=== PATIENT | male | born 1945 | race Caucasian/White ===

== ENCOUNTER 2020-10-06 14:34 | Inpatient (IN) | payer MEDICARE, BC ==
[2020-10-06] MEDS ORDERED: Acetaminophen 325 MG TAB PO PRN (15:28)
[2020-10-06] MEDS ORDERED: Ondansetron PF 4 MG/2 ML Vial IVP PRN (15:28)
[2020-10-06] MEDS ORDERED: Dextrose 5% in Water 1,000 ML IV PRN (15:30)
[2020-10-06] MEDS ORDERED: Dextrose 50% Abboject 50 ML SYRINGE SLOW IVP PRN (15:30)
[2020-10-06] MEDS ORDERED: Sodium Chloride 0.9% 1,000 ML IV SCH (16:00)
--- NOTE | 2020-10-06 16:20 | HP ---
CHIEF COMPLAINT: Shortness of breath. HISTORY OF PRESENT ILLNESS: The patient is a 75-year-old male with past medical history of diabetes mellitus, hypertension, early dementia, and CHF. He initially presented to [facility] with complaints of generalized aching, shortness of breath, and dry cough. His initial oxygen saturations were in the mid 80s on room air. The patient denies chest pain, abdominal pain, nausea, or vomiting. His COVID test came back positive and the patient was transferred here for further evaluation. REVIEW OF SYSTEMS: Negative except as noted in HPI. PAST MEDICAL HISTORY: As noted above. PAST SURGICAL HISTORY: No known surgeries. SOCIAL HISTORY: The patient denies alcohol use, smoking, or illicit drug use. FAMILY HISTORY: Noncontributory in this case. PHYSICAL EXAMINATION: GENERAL: The patient is alert and oriented x3. HEENT: Head is normocephalic and atraumatic. Extraocular muscles are intact. NECK: Supple. CHEST: Clear to auscultation except for the crackles heard at the bases. CARDIOVASCULAR: Revealed normal S1 and S2. Regular rate and rhythm. No murmurs, rubs, or gallops. ABDOMEN: Soft, nontender, nondistended. NEUROLOGIC: Revealed normal cranial nerves 2 through 12 and normal motor and sensory evaluation. ASSESSMENT: 1. Acute respiratory failure with hypoxia. 2. COVID-19 pneumonia. 3. Hypertension. 4. Diabetes mellitus type 2. 5. Early dementia. PLAN: The patient will be admitted to the hospital. We will start supplemental oxygen as needed to maintain O2 saturations greater than 92%. Start IV dexamethasone 6 mg daily and Lovenox 40 mg subcu twice daily for DVT prophylaxis and anticoagulation. The patient's symptoms started less than a week ago and his creatinine level appears to be mildly elevated. I will check his liver enzymes and consider starting remdesivir. Job ID: [id number]
[2020-10-06] MEDS ORDERED: REMDESIVIR (EUA) 200 MG in Sodium Chloride 0.9% 250 ML 210 ML IV SCH (18:00)
[2020-10-06 18:06] VITALS: BMI 24.2
[2020-10-06] MEDS: Enoxaparin Sodium 40 MG/0.4 ML SYRINGE SC SCH (20:41)
[2020-10-07] MEDS: HumaLOG 300 UNITS/3 ML VIAL SC PRN ×3 (04:28→19:01)
[2020-10-07 06:22] LABS: #Lymphocytes 0.8 thou/uL (1.20-3.40); #Monocytes 0.7 thou/uL (0.11-0.59); #Neutrophils 6.5 thou/uL (1.40-6.50); %Eosinophils 0.2 % (0.0-10.0); %Lymphocytes 10.1 % (21.0-51.0); %Monocytes 8.2 % (0.0-10.0); %Neutrophils 81.5 % (42.0-75.0); Hemoglobin 12.5 g/dL (14.0-18.0); Mean Corpuscular Hemoglobin 33.5 pg (27.0-31.0); Mean Platelet Volume 6.4 fL (7.4-10.4); Platelet Count 268 thou/uL (130-400); RBC Distribution Width 11.5 % (11.5-14.5); Red Blood Cell (RBC) Count 3.72 mill/uL (4.70-6.10); White Blood Cell (WBC) Count 7.9 thou/uL (4.8-10.8)
[2020-10-07 06:43] LABS: Anion Gap 14 mmol/L (10-20); BUN (Urea Nitrogen) 24 mg/dL (8.4-25.7); Calc. Creatinine Clearance 49 mL/min (70-130); Calcium 7.8 mg/dL (7.8-10.44); Carbon Dioxide 25 mmol/L (23-31); Chloride 104 mmol/L (98-107); Glucose 200 mg/dL (83-110); Potassium 4.6 mmol/L (3.5-5.1); Sodium 138 mmol/L (136-145)
[2020-10-07] MEDS: Enoxaparin Sodium 40 MG/0.4 ML SYRINGE SC SCH (09:11)
[2020-10-07] MEDS: Dexamethasone 4 mg/ml Vial SLOW IVP SCH ×2 (09:11)
--- NOTE | 2020-10-07 15:27 | CON ---
DATE OF CONSULTATION: 10/07/2020 REASON FOR CONSULTATION: COVID pneumonia. HISTORY OF PRESENT ILLNESS: A 75-year-old who has a history of type 2 diabetes, hypertension, and CHF, who has been sick with weakness, fever for the past 4 to 5 days. He was admitted on the and he lives in [place]. He is retired, lives there with his , had some kind of operation few months ago, but no other person that he knows that has had any diagnosis of NFEY-OCDUF-3 infection. He also has a history of some form of lung disease for which he used inhalers in the past. Has a CT of chest in the past, which showed interstitial fibrosis. In [place] [facility], his oxygen sats were in high 80s. He was given supplemental oxygen and it went up to 91% to 92%. A CT of chest showed findings consistent with pulmonary fibrosis as well as superimposed atypical pneumonia consistent with ICUF-IZPHL-7, but negative for pulmonary embolism. Currently, Mr. Amos is sitting by the bedside, looking at the window. He does not appear in any distress. He himself states that he feels just fine. No headaches. No visual symptoms, sore throat, odynophagia, or dysphagia. No nausea. No anosmia. No ageusia. Some cough, but no sputum production. No chest pain. Mild dyspnea. No abdominal pain or diarrhea, no genitourinary symptoms, no joint symptoms. PAST MEDICAL HISTORY: Hypertension, diabetes, some form of cardiomyopathy with CHF, reported pulmonary fibrosis by CT scan from 2011, but the patient himself does not recall that. There is a listed diagnosis of dementia. PAST SURGICAL HISTORY: The patient has had no surgical interventions in the past. 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 Drinks occasionally. Quit smoking in . FAMILY HISTORY: Noncontributory. His has not been sick over recently and has not been tested for COVID recently, but she was tested a few months ago when she was admitted for surgical procedure and was negative. MEDICATION LIST: Currently, he is receiving Decadron, remdesivir, insulin, enoxaparin. PHYSICAL EXAMINATION: VITAL SIGNS: Showed T-max 98.3, blood pressure 150/68, heart rate 56, respiratory rate 18 to 20. He is saturating anywhere from 90% to 92% with 3 L nasal cannula. SKIN: Shows peripheral IV access. He has no Onofre catheter. No lymphadenopathy. HEENT: Ocular movements conjugate. Some pterygium noted in the eyes. Conjunctivae normal. Still quite a few teeth in place with usual decay. NECK: Supple. No jugular vein distention. LUNGS: With few crackles, but not many scattered areas. For the most part, breath sounds are clear. No wheezing. HEART: S1 and S2. Regular rate without murmurs. No S3 or S4. ABDOMEN: Soft, nondistended or tender. No ascites. No bladder distention. MUSCULOSKELETAL: No joint inflammatory activity. No edema. Pulses 1+ in dorsalis pedis. Moves all extremities equally. Plantar responses are flexor. No clonus. NEUROLOGIC: Awake and oriented. Follows commands. His recall is a bit lacking, but he speaks in full sentences. No difficulty in finding words. LABORATORY DATA: Creatinine is 1.35, glucose 255, white cell count 7.9, hemoglobin 12.5, MCV 102, platelets 268, 81% neutrophils and ZNGC-[id number]-2 RNA PCR was positive. The chest imaging studies have been discussed. ASSESSMENT: Pulmonary fibrosis, type 2 diabetes, hypertension, some form of congestive heart failure, who comes in with 4 to 5-day history of symptoms of fever, respiratory symptoms, and general malaise and OVYF-PODGT-2 positive PCR. The patient is at the end of his 1st week of illness and still long ways to go before he is out of the dangerous second stage of COVID-19 or any inflammatory process supervenes. Continue current measures and monitor daily. Recent randomized trial demonstrate that the intensified anticoagulation dosing for COVID-19 is not helpful and I would advise just usual prophylactic dosing of Lovenox. Job ID: [id number] [facility]
--- NOTE | 2020-10-07 16:10 | PDOC.HOSPP ---
- Subjective Encounter Date: 10/07/20 Encounter Time: 09:00 Subjective: patient seen on f/u for covid 19 pneumonia, refers feeling well, denies fever chills change in smell or taste, currently on 02 supplementation. refers dyspnea improved with supplementation also complains of cough - Objective Vital Signs & Weight: Weight Weight 163 lb 12.8 oz I&O: 10/06/20 10/07/20 10/08/20 06:59 06:59 06:59 Intake Total 240 Balance 240 Result Diagrams: 10/07/20 05:49 10/07/20 05:49 Additional Labs: Accuchecks 10/07/20 10/07/20 11:17 04:06 POC Glucose 255 H 221 H Hospitalist ROS - Review of Systems All other systems reviewed; all pertinent +/- noted in HPI/Subj - Medication Medications: Active Medications Generic Name Dose Route Start Last Admin Trade Name Freq PRN Reason Stop Dose Admin Dexamethasone 6 mg 10/07/20 09:00 10/07/20 09:11 Dexamethasone 4 Mg/Ml Vial SLOW IVP 6 mg DAILY OLIVIA Administration Insulin Human Lispro 0 units 10/06/20 15:30 10/07/20 12:16 Humalog 300 Units/3 Ml Vial SC 6 unit .MODERATE SLIDING SC PRN Administration Moderate Correctional Scale - Exam General Appearance: NAD, awake alert Eye: PERRL, anicteric sclera ENT: normocephalic atraumatic, no oropharyngeal lesions Neck: supple, symmetric, no JVD, no thyromegaly Heart: RRR, no murmur, no gallops, no rubs Respiratory: no wheezes, no rales, tachypneic Gastrointestinal: soft, non-tender, non-distended Extremities: no cyanosis, no clubbing, no edema Skin: normal turgor, no lesions, no rashes Neurological: cranial nerve grossly intact, normal sensation to touch, no weakness Musculoskeletal: normal tone, normal strength, no muscle wasting Psychiatric: normal affect, normal behavior, A&O x 3 Hosp A/P (1) Pneumonia due to COVID-19 virus Code(s): U07.1 - COVID-19; J12.89 - OTHER VIRAL PNEUMONIA Status: Acute (2) Acute respiratory failure with hypoxia Code(s): J96.01 - ACUTE RESPIRATORY FAILURE WITH HYPOXIA Status: Acute (3) HLD (hyperlipidemia) Code(s): E78.5 - HYPERLIPIDEMIA, UNSPECIFIED Status: Acute - Plan pneumonia due to covid 19 - continue 02 supplemenation - continue decadron - dvt prophylaxis - ID consulted for possible remdesevir hypoxic resp failure - secondary to above - wean as tolerated - 02 supplementation janine -continue iv hydration f/u creatinine and u/o DM ss+acc htn -holding for now due to infection and janine
[2020-10-07] MEDS: REMDESIVIR (EUA) 100 MG in Sodium Chloride 0.9% 250 ML 230 ML IV SCH (18:31)
[2020-10-08 06:56] LABS: Anion Gap 13 mmol/L (10-20); BUN (Urea Nitrogen) 23 mg/dL (8.4-25.7); Calc. Creatinine Clearance 52 mL/min (70-130); Calcium 8.2 mg/dL (7.8-10.44); Carbon Dioxide 27 mmol/L (23-31); Chloride 105 mmol/L (98-107); Glucose 191 mg/dL (83-110); Potassium 4.3 mmol/L (3.5-5.1); Sodium 141 mmol/L (136-145)
[2020-10-08] MEDS: Dexamethasone 4 mg/ml Vial SLOW IVP SCH (09:27)
[2020-10-08] MEDS: Enoxaparin Sodium 40 MG/0.4 ML SYRINGE SC SCH (09:27)
--- NOTE | 2020-10-08 13:37 | PDOC.HOSPP ---
- Subjective Encounter Date: 10/08/20 Encounter Time: 11:00 Subjective: patient seen on f/u for covid 19 and hypoxia. patient stated he was feeling better and decided to removed his nasal canula, which was complicated after 30mins with a drop in 02 sats to the 80s hypotension and tachycardia, patient stated he felt sob but denies any chest pain palpitations fever chills nausea or vomiting. - Objective Vital Signs & Weight: Vital Signs (12 hours) Temp Pulse Resp BP Pulse Ox 10/08/20 11:12 98.2 F 60 20 122/69 94 L 10/08/20 08:28 81 126/69 91 L 10/08/20 08:25 87 L 10/08/20 07:44 98.5 F 108 H 18 80/63 L 93 L Weight Weight 163 lb 12.8 oz I&O: 10/07/20 10/08/20 10/09/20 06:59 06:59 06:59 Intake Total 240 1200 Balance 240 1200 Result Diagrams: 10/07/20 05:49 10/08/20 05:47 Additional Labs: Accuchecks 10/08/20 10/08/20 10/07/20 11:17 06:43 16:21 POC Glucose 229 H 197 H 232 H Hospitalist ROS - Review of Systems All other systems reviewed; all pertinent +/- noted in HPI/Subj - Medication Medications: Active Medications Generic Name Dose Route Start Last Admin Trade Name Freq PRN Reason Stop Dose Admin Dexamethasone 6 mg 10/07/20 09:00 10/08/20 09:27 Dexamethasone 4 Mg/Ml Vial SLOW IVP 6 mg DAILY OLIVIA Administration Enoxaparin Sodium 40 mg 10/08/20 09:00 10/08/20 09:27 Enoxaparin Sodium 40 Mg/0.4 Ml Syringe SC 40 mg 0900 OLIVIA Administration Remdesivir 100 mg/ Sodium 250 mls @ 250 mls/hr 10/07/20 18:00 10/07/20 18:31 Chloride IV 10/10/20 18:59 250 mls 1800 OLIVIA Administration Insulin Human Lispro 0 units 10/06/20 15:30 10/07/20 19:01 Humalog 300 Units/3 Ml Vial SC 4 unit .MODERATE SLIDING SC PRN Administration Moderate Correctional Scale - Exam General Appearance: NAD, awake alert Eye: PERRL, anicteric sclera ENT: normocephalic atraumatic, no oropharyngeal lesions Neck: supple, symmetric, no JVD Heart: RRR, no murmur, no gallops Respiratory: CTAB, no wheezes, no rales Gastrointestinal: soft, non-tender, non-distended Extremities: no cyanosis, no clubbing, no edema Skin: normal turgor, no lesions, no rashes Neurological: cranial nerve grossly intact, normal sensation to touch Musculoskeletal: normal tone, normal strength, no muscle wasting Psychiatric: normal affect, normal behavior, A&O x 3 Hosp A/P (1) Pneumonia due to COVID-19 virus Code(s): U07.1 - COVID-19; J12.89 - OTHER VIRAL PNEUMONIA Status: Acute (2) Acute respiratory failure with hypoxia Code(s): J96.01 - ACUTE RESPIRATORY FAILURE WITH HYPOXIA Status: Acute (3) HLD (hyperlipidemia) Code(s): E78.5 - HYPERLIPIDEMIA, UNSPECIFIED Status: Acute (4) ZAN (acute kidney injury) Code(s): N17.9 - ACUTE KIDNEY FAILURE, UNSPECIFIED Status: Acute - Plan pneumonia due to covid 19 - continue 02 supplemenation - continue decadron - dvt prophylaxis - ID consulted for remdesevir hypoxic resp failure - secondary to above - wean as tolerated - 02 supplementation zan -continue iv hydration f/u creatinine and u/o - improved continue to monitor DM ss+acc htn -holding for now due to infection and zan
[2020-10-08] MEDS: HumaLOG 300 UNITS/3 ML VIAL SC PRN (18:00)
[2020-10-08] MEDS: REMDESIVIR (EUA) 100 MG in Sodium Chloride 0.9% 250 ML 230 ML IV SCH (18:01)
[2020-10-09] MEDS: HumaLOG 300 UNITS/3 ML VIAL SC PRN ×3 (05:36→16:38)
[2020-10-09] MEDS: Enoxaparin Sodium 40 MG/0.4 ML SYRINGE SC SCH (09:27)
[2020-10-09] MEDS: Dexamethasone 4 mg/ml Vial SLOW IVP SCH (09:27)
--- NOTE | 2020-10-09 15:11 | PRG ---
DATE OF SERVICE: 10/09/2020 SUBJECTIVE: Sitting by the bed as usual. Looking better than when I saw him last time. He did not like the food, but other than that, he has no headaches. No dyspnea. No chest pain. No abdominal pain. OBJECTIVE: VITAL SIGNS: He is afebrile. He is saturating 94% with 2.5 L nasal cannula, and BP 140/75. He is breathing 18 to 20 times a minute. LUNGS: Fairly clear to auscultation and percussion. HEART: S1 and S2, regular rate. ABDOMEN: Soft. Not distended or tender. LABORATORY DATA: His creatinine is 1.28, has not been repeated. We do not have any CRP or ferritin followups. He is currently on remdesivir and Decadron. ASSESSMENT AND DISCUSSION: Pulmonary fibrosis history, type 2 diabetes, hypertension, and some form of cardiomyopathy. So right now, he is starting his second week of illness, but he is doing really well. Maybe he can be discharged in the next few days with oxygen at home. There is some risk, but I will go ahead and recheck his CRP and ferritin and see where we stand. Job ID: [id number]
--- NOTE | 2020-10-09 17:49 | PDOC.HOSPP ---
- Subjective Encounter Date: 10/09/20 Encounter Time: 13:18 Subjective: patient in chair, no chest pain or shortness of breath, still needing o2 to ambulate, desaturated when it fell off in sleep - Objective Vital Signs & Weight: Vital Signs (12 hours) Temp Pulse Resp BP BP Pulse Ox 10/09/20 16:35 52 L 18 156/80 H 10/09/20 16:00 97.7 F 48 L 20 171/101 H 94 L 10/09/20 12:05 141/75 H 10/09/20 11:20 97.9 F 53 L 20 169/71 H 92 L 10/09/20 09:30 93 L 10/09/20 09:25 60 18 154/84 H 10/09/20 07:30 97.4 F L 50 L 20 166/87 H 93 L Weight Weight 163 lb 12.8 oz I&O: 10/08/20 10/09/20 10/10/20 06:59 06:59 06:59 Intake Total 1200 Balance 1200 Result Diagrams: 10/10/20 06:45 10/10/20 06:45 Additional Labs: Accuchecks 10/09/20 10/09/20 10/09/20 15:58 11:17 05:31 POC Glucose 235 H 224 H 186 H 10/08/20 20:31 POC Glucose 252 H Hospitalist ROS - Medication Medications: Active Medications Generic Name Dose Route Start Last Admin Trade Name Freq PRN Reason Stop Dose Admin Dexamethasone 6 mg 10/07/20 09:00 10/09/20 09:27 Dexamethasone 4 Mg/Ml Vial SLOW IVP 6 mg DAILY OLIVIA Administration Enoxaparin Sodium 40 mg 10/08/20 09:00 10/09/20 09:27 Enoxaparin Sodium 40 Mg/0.4 Ml Syringe SC 40 mg 0900 OLIVIA Administration Remdesivir 100 mg/ Sodium 250 mls @ 250 mls/hr 10/07/20 18:00 10/08/20 18:01 Chloride IV 10/10/20 18:59 250 mls 1800 OLIVIA Administration Insulin Human Lispro 0 units 10/06/20 15:30 10/09/20 16:38 Humalog 300 Units/3 Ml Vial SC 4 unit .MODERATE SLIDING SC PRN Administration Moderate Correctional Scale - Exam General Appearance: NAD, awake alert Eye: PERRL, anicteric sclera ENT: normocephalic atraumatic, no oropharyngeal lesions, moist mucosa Neck: supple, symmetric, no JVD, no thyromegaly, no lymphadenopathy, no carotid bruit Heart: RRR, no murmur, no gallops, no rubs, normal peripheral pulses Respiratory: CTAB, no wheezes, no rales, no ronchi, normal chest expansion, no tachypnea, normal percussion Gastrointestinal: soft, non-tender, non-distended, normal bowel sounds, no palpable masses, no hepatomegaly, no splenomegaly, no bruit Extremities: no cyanosis, no clubbing, no edema Skin: normal turgor, no lesions, no rashes Neurological: cranial nerve grossly intact, normal sensation to touch, no weakness, no focal deficits, no new deficit Musculoskeletal: normal tone, normal strength, no muscle wasting Psychiatric: normal affect, normal behavior, A&O x 3 Hosp A/P (1) ZAN (acute kidney injury) Code(s): N17.9 - ACUTE KIDNEY FAILURE, UNSPECIFIED Status: Acute (2) Acute respiratory failure with hypoxia Code(s): J96.01 - ACUTE RESPIRATORY FAILURE WITH HYPOXIA Status: Acute (3) HLD (hyperlipidemia) Code(s): E78.5 - HYPERLIPIDEMIA, UNSPECIFIED Status: Acute (4) Pneumonia due to COVID-19 virus Code(s): U07.1 - COVID-19; J12.89 - OTHER VIRAL PNEUMONIA Status: Acute - Plan pneumonia due to covid 19 - continue 02 supplemenation - continue decadron - dvt prophylaxis - ID consulted for remdesevir hypoxic resp failure - secondary to above - wean as tolerated - 02 supplementation zan -continue iv hydration f/u creatinine and u/o - improved continue to monitor DM ss+acc htn -holding for now due to infection and zan
[2020-10-09] MEDS: REMDESIVIR (EUA) 100 MG in Sodium Chloride 0.9% 250 ML 230 ML IV SCH (18:54)
[2020-10-10] MEDS: HumaLOG 300 UNITS/3 ML VIAL SC PRN ×3 (05:48→15:46)
[2020-10-10 07:00] LABS: #Lymphocytes 1.4 thou/uL (1.20-3.40); #Monocytes 0.9 thou/uL (0.11-0.59); #Neutrophils 7.1 thou/uL (1.40-6.50); %Basophils 0.2 % (0.0-1.0); %Eosinophils 0.2 % (0.0-10.0); %Lymphocytes 14.3 % (21.0-51.0); %Monocytes 9.7 % (0.0-10.0); %Neutrophils 75.6 % (42.0-75.0); Hemoglobin 12.3 g/dL (14.0-18.0); Mean Corpuscular HGB CONC 33.4 g/dL (32.0-36.0); Mean Corpuscular Hemoglobin 33.7 pg (27.0-31.0); Mean Platelet Volume 6.2 fL (7.4-10.4); Platelet Count 340 thou/uL (130-400); RBC Distribution Width 11.5 % (11.5-14.5); Red Blood Cell (RBC) Count 3.63 mill/uL (4.70-6.10); White Blood Cell (WBC) Count 9.4 thou/uL (4.8-10.8)
[2020-10-10 07:22] LABS: Anion Gap 11 mmol/L (10-20); BUN (Urea Nitrogen) 22 mg/dL (8.4-25.7); Calc. Creatinine Clearance 61 mL/min (70-130); Calcium 7.9 mg/dL (7.8-10.44); Carbon Dioxide 28 mmol/L (23-31); Chloride 105 mmol/L (98-107); Glucose 140 mg/dL (83-110); Magnesium 2.2 mg/dL (1.6-2.6); Potassium 4.1 mmol/L (3.5-5.1); Sodium 140 mmol/L (136-145)
[2020-10-10] MEDS: Enoxaparin Sodium 40 MG/0.4 ML SYRINGE SC SCH (07:56)
[2020-10-10] MEDS: Dexamethasone 4 mg/ml Vial SLOW IVP SCH (07:56)
--- NOTE | 2020-10-10 13:18 | PDOC.HOSPP ---
- Subjective Encounter Date: 10/10/20 Encounter Time: 13:16 Subjective: patient in room, on o2, pleasant and cheerful, last dose remdesivir tonight, wants to try to leave with home o2 tomorrow. no chest pain or shortness of breath. - Objective Vital Signs & Weight: Vital Signs (12 hours) Temp Pulse Resp BP BP Pulse Ox 10/10/20 11:50 98.7 F 60 18 142/81 H 92 L 10/10/20 09:45 92 L 10/10/20 09:44 98.1 F 50 L 16 156/76 H 92 L 10/10/20 04:00 92 L Weight Weight 163 lb 12.8 oz I&O: 10/09/20 10/10/20 10/11/20 06:59 06:59 06:59 Intake Total 990 Balance 990 Result Diagrams: 10/10/20 06:45 10/10/20 06:45 Additional Labs: Accuchecks 10/10/20 10/10/20 10/09/20 10:56 05:16 20:31 POC Glucose 233 H 161 H 243 H 10/09/20 10/08/20 15:58 15:59 POC Glucose 235 H 279 H Radiology Reviewed by me: Yes Hospitalist ROS - Medication Medications: Active Medications Generic Name Dose Route Start Last Admin Trade Name Josueq PRN Reason Stop Dose Admin Dexamethasone 6 mg 10/07/20 09:00 10/10/20 07:56 Dexamethasone 4 Mg/Ml Vial SLOW IVP 6 mg DAILY OLIVIA Administration Enoxaparin Sodium 40 mg 10/08/20 09:00 10/10/20 07:56 Enoxaparin Sodium 40 Mg/0.4 Ml Syringe SC 40 mg 0900 OLIVIA Administration Remdesivir 100 mg/ Sodium 250 mls @ 250 mls/hr 10/07/20 18:00 10/09/20 18:54 Chloride IV 10/10/20 18:59 250 mls 1800 OLIVIA Administration Insulin Human Lispro 0 units 10/06/20 15:30 10/10/20 10:57 Humalog 300 Units/3 Ml Vial SC 4 unit .MODERATE SLIDING SC PRN Administration Moderate Correctional Scale - Exam General Appearance: NAD, awake alert Eye: PERRL, anicteric sclera ENT: normocephalic atraumatic, no oropharyngeal lesions, moist mucosa Neck: supple, symmetric, no JVD, no thyromegaly, no lymphadenopathy, no carotid bruit Heart: RRR, no murmur, no gallops, no rubs, normal peripheral pulses Respiratory: CTAB, no wheezes, no rales, no ronchi, normal chest expansion, no tachypnea, normal percussion Gastrointestinal: soft, non-tender, non-distended, normal bowel sounds, no pa lpable masses, no hepatomegaly, no splenomegaly, no bruit Extremities: no cyanosis, no clubbing, no edema Skin: normal turgor, no lesions, no rashes Neurological: cranial nerve grossly intact, normal sensation to touch, no we akness, no focal deficits, no new deficit Musculoskeletal: normal tone, normal strength, no muscle wasting Psychiatric: normal affect, normal behavior, A&O x 3 Hosp A/P (1) JANINE (acute kidney injury) Code(s): N17.9 - ACUTE KIDNEY FAILURE, UNSPECIFIED Status: Acute (2) Acute respiratory failure with hypoxia Code(s): J96.01 - ACUTE RESPIRATORY FAILURE WITH HYPOXIA Status: Acute (3) HLD (hyperlipidemia) Code(s): E78.5 - HYPERLIPIDEMIA, UNSPECIFIED Status: Acute (4) Pneumonia due to COVID-19 virus Code(s): U07.1 - COVID-19; J12.89 - OTHER VIRAL PNEUMONIA Status: Acute - Plan pneumonia due to covid 19 - continue 02 supplemenation - continue decadron - dvt prophylaxis - ID consulted for remdesevir hypoxic resp failure - secondary to above - wean as tolerated - 02 supplementation janine -continue iv hydration f/u creatinine and u/o - improved continue to monitor DM ss+acc htn -holding for now due to infection and janine disposition: d/c home tomorrow, last dose remdesivir today, home o2 form signed appreciate case management assistance in arranging
[2020-10-10] MEDS: REMDESIVIR (EUA) 100 MG in Sodium Chloride 0.9% 250 ML 230 ML IV SCH (16:44)
[2020-10-11] MEDS: HumaLOG 300 UNITS/3 ML VIAL SC PRN ×2 (05:54→11:42)
[2020-10-11 07:47] LABS: Anion Gap 13 mmol/L (10-20); BUN (Urea Nitrogen) 22 mg/dL (8.4-25.7); Calc. Creatinine Clearance 62 mL/min (70-130); Calcium 8.3 mg/dL (7.8-10.44); Carbon Dioxide 27 mmol/L (23-31); Chloride 104 mmol/L (98-107); Glucose 192 mg/dL (83-110); Magnesium 2.1 mg/dL (1.6-2.6); Potassium 4.2 mmol/L (3.5-5.1); Sodium 140 mmol/L (136-145)
[2020-10-11 07:52] LABS: Hemoglobin 12.9 g/dL (14.0-18.0); Mean Corpuscular HGB CONC 33.9 g/dL (32.0-36.0); Mean Corpuscular Hemoglobin 34.5 pg (27.0-31.0); Mean Platelet Volume 6.5 fL (7.4-10.4); Platelet Count 360 thou/uL (130-400); RBC Distribution Width 11.5 % (11.5-14.5); Red Blood Cell (RBC) Count 3.75 mill/uL (4.70-6.10); White Blood Cell (WBC) Count 11.1 thou/uL (4.8-10.8)
[2020-10-11] MEDS: Dexamethasone 4 mg/ml Vial SLOW IVP SCH (09:08)
[2020-10-11] MEDS: Enoxaparin Sodium 40 MG/0.4 ML SYRINGE SC SCH (09:09)
[2020-10-11 10:19] LABS: Band 1 % (5-11); Lymphocytes 19 % (21-51); MDiff Complete? YES; Monocytes 3 % (0-10); Neutrophil 75 % (42-75); RBC Morphology Normal; Reactive Lymphocytes 2 % (0-10)
[2020-10-11] MEDS ORDERED: RAMIPRIL 1.25 MG PO SCH (10:53)
[2020-10-11] MEDS ORDERED: Amlodipine 10 MG TAB PO SCH ×2 (10:54→11:15)
--- NOTE | 2020-10-11 11:03 | PDOC.DS.DS ---
Provider - Provider Date of Admission: 10/06/20 15:30 Admitting Provider: Cathy Gamboa MD Primary Care Physician: Maryann Burnette Course - Labs Lab Results: 10/11/20 07:07 10/11/20 07:07 Abnormal Lab Results - Last 48 hrs 10/09/20 15:10: C-Reactive Protein 3.79 H 10/10/20 06:45: RBC 3.63 L, Hgb 12.3 L, Hct 36.7 L, MCV 101.0 H, MCH 33.7 H, MPV 6.2 L, Neutrophils % 75.6 H, Lymphocytes % 14.3 L, Neutrophils # 7.1 H, Monocytes # 0.9 H 10/11/20 07:07: WBC 11.1 H, RBC 3.75 L, Hgb 12.9 L, Hct 38.1 L, MCV 102.0 H, MCH 34.5 H, MPV 6.5 L, Band Neuts % (Manual) 1 L, Lymphocytes % (Manual) 19 L Microbiology - Entire Visit 10/09/20 09:35 Venous blood - Left Arm Blood Culture - Preliminary Specimen has been received and culture in progress. No Growth to date. 10/09/20 09:35 Venous blood - Right Arm Blood Culture - Preliminary Specimen has been received and culture in progress. No Growth to date. - Physical Exam Vitals: Vital Signs (12 hours) Temp Pulse Resp BP BP Pulse Ox 10/11/20 09:20 92 L 10/11/20 08:00 98.2 F 55 L 20 174/70 H 92 L 10/11/20 00:31 98.0 F 52 L 18 159/86 H 92 L Weight Weight 163 lb 12.8 oz Physical Exam: The patient was seen and examined on the day of discharge. Problem - Problem (1) ZAN (acute kidney injury) Code(s): N17.9 - ACUTE KIDNEY FAILURE, UNSPECIFIED Status: Acute (2) Acute respiratory failure with hypoxia Code(s): J96.01 - ACUTE RESPIRATORY FAILURE WITH HYPOXIA Status: Acute (3) HLD (hyperlipidemia) Code(s): E78.5 - HYPERLIPIDEMIA, UNSPECIFIED Status: Acute (4) Pneumonia due to COVID-19 virus Code(s): U07.1 - COVID-19; J12.89 - OTHER VIRAL PNEUMONIA Status: Acute Plan - Discharge Medications Prescriptions: Dexamethasone 6 mg PO DAILY #5 tablet Home Medications: Medication Instructions Recorded Confirmed Type Acetaminophen [Tylenol] 325 mg PO DAILY 10/06/20 10/06/20 History Amlodipine Besylate [amLODIPine 10 mg PO DAILY 10/06/20 10/06/20 History Besylate] Aspirin/Dipyridamole 1 cap PO BID 10/06/20 10/06/20 History [Aspirin-Dipyridam ER 25-200 mg] Pravastatin Sodium 20 mg PO HS 10/06/20 10/06/20 History Ramipril [Altace] 1 cap PO DAILY 10/06/20 10/06/20 History glipiZIDE [Glipizide] 5 mg PO QAM 10/06/20 10/06/20 History Dexamethasone 6 mg PO DAILY #5 tablet 10/11/20 Rx Allergies: codeine Allergy (Verified 10/06/20 18:15) - Discharge Instructions Discharge Instructions:: - discharge once home o2 set up and tank here for transport home - wear o2 06/05 at 3 liters per minute - see pcp in 1-2 weeks for titration off of o2 - must have in-home support from 06/05 no exceptions Nourishment:: Heart Healthy Diet - Follow up Plan Referrals: Carolyn Murphy MD [Primary Care Provider] - Disposition: HOME
[2020-10-11 13:53] VITALS: BP 149/75; TEMP 98
[2020-10-11] MEDS ORDERED: Simvastatin 10 MG TAB PO SCH (21:00)
[2020-10-11] MEDS ORDERED: Pravastatin Sodium 20 MG TAB PO SCH (21:00)
[2020-10-11] MEDS ORDERED: Aggrenox 200-25mg CAP PO SCH (21:00)
[2020-10-12] MEDS ORDERED: Amlodipine 10 MG TAB PO SCH (09:00)
[2020-10-12] MEDS ORDERED: glipiZIDE 5 MG TAB PO SCH (09:00)
[2020-10-12] MEDS ORDERED: RAMIPRIL 1.25 MG PO SCH (09:00)
== END 2020-10-11 14:07 | disposition home or self-care (01) | DRG 177 ==
LOC: ERS 14:34 → T4-A 15:30
PROVIDERS: ADMIT Internal Medicine; ATTEND Internal Medicine
PROC: 8E0ZXY6 Isolation (ICD-10-PCS; principal; 2020-10-06)
PROC: XW043E5 Introduction of Remdesivir Anti-infective into Central Vein, Percutaneous Approach, New Technology Group 5 (ICD-10-PCS; 2020-10-06)
DX: U07.1 COVID-19 (principal); J12.89 Other viral pneumonia; J96.01 Acute respiratory failure with hypoxia; N17.9 Acute kidney failure, unspecified; I42.9 Cardiomyopathy, unspecified; Z23 Encounter for immunization; E78.5 Hyperlipidemia, unspecified; E11.9 Type 2 diabetes mellitus without complications; F03.90 Unspecified dementia, unspecified severity, without behavioral disturbance, psychotic disturbance, mood disturbance, and anxiety; I50.9 Heart failure, unspecified; J84.10 Pulmonary fibrosis, unspecified; I11.0 Hypertensive heart disease with heart failure; Z88.5 Allergy status to narcotic agent; Z79.82 Long term (current) use of aspirin; Z79.84 Long term (current) use of oral hypoglycemic drugs; Z79.899 Other long term (current) drug therapy
CPT/HCPCS: 36415; 36416; 80048; 82728; 83735; 85025; 86140; 87040; 90471; 90732; 99285; G0009; J1100; J1650; J7050

== ENCOUNTER 2021-08-29 18:12 | Inpatient (IN) | payer MEDICARE, BC ==
[2021-08-29 19:40] LABS: #Eosinphils 0.1 thou/uL (0.0-0.7); #Lymphocytes 0.8 thou/uL (1.20-3.40); #Monocytes 0.8 thou/uL (0.11-0.59); #Neutrophils 10.6 thou/uL (1.40-6.50); %Basophils 0.3 % (0.0-1.0); %Eosinophils 0.5 % (0.0-10.0); %Lymphocytes 6.8 % (21.0-51.0); %Monocytes 6.2 % (0.0-10.0); %Neutrophils 86.2 % (42.0-75.0); Hemoglobin 11.6 g/dL (14.0-18.0); Mean Corpuscular HGB CONC 32.9 g/dL (32.0-36.0); Mean Corpuscular Hemoglobin 33.1 pg (27.0-31.0); Mean Platelet Volume 5.3 fL (7.4-10.4); Platelet Count 406 thou/uL (130-400); RBC Distribution Width 12.2 % (11.5-14.5); Red Blood Cell (RBC) Count 3.49 mill/uL (4.70-6.10); White Blood Cell (WBC) Count 12.3 thou/uL (4.8-10.8)
[2021-08-29 19:42] LABS: Bilirubin Negative (Negative); Blood, Urine Negative (Negative); Clarity Clear (Clear); Glucose, Urine (Dipstick) Normal (Negative); Ketone, Urine Negative (Negative); Leukocyte Negative Leu/uL (Negative); Nitrite Negative (Negative); Protein, Urine (Dipstick) 20 mg/dL (Neg-Trace); Urobilinogen Normal mg/dL (Less than 2)
[2021-08-29 20:01] LABS: ALT (SGPT) 8 U/L (8-55); AST (SGOT) 10 U/L (5-34); Albumin 3.6 g/dL (3.4-4.8); Alkaline Phosphatase 46 U/L (40-110); Anion Gap 12 mmol/L (10-20); BUN (Urea Nitrogen) 14 mg/dL (8.4-25.7); Bilirubin, Total 0.3 mg/dL (0.2-1.2); Calc. Creatinine Clearance 0 mL/min (70-130); Calcium 8.9 mg/dL (7.8-10.44); Carbon Dioxide 22 mmol/L (23-31); Chloride 105 mmol/L (98-107); Globulin 3.1 g/dL (2.4-3.5); Glucose 149 mg/dL (83-110); Potassium 4.4 mmol/L (3.5-5.1); Protein, Total 6.7 g/dL (5.8-8.1); Sodium 135 mmol/L (136-145)
[2021-08-29] MEDS ORDERED: Piperacillin/Tazobactam 3.375 GM VIAL ONE (20:25)
[2021-08-29 21:34] LABS: SARS-CoV-2 NAA Rapid Test Not Detected (NotDetected)
[2021-08-29] MEDS ORDERED: Vancomycin 1 GM/200 ML BAG ONE (22:37)
[2021-08-30] MEDS ORDERED: Ondansetron PF 4 MG/2 ML Vial IVP PRN (02:43)
[2021-08-30] MEDS ORDERED: CEFEPIME HCL IN DEXTROSE 5 % 1 GM/50 ML BAG IVPB SCH (02:45)
[2021-08-30] MEDS ORDERED: HumaLOG 300 UNITS/3 ML VIAL SC PRN ×2 (02:46)
[2021-08-30] MEDS ORDERED: Dextrose 5% in Water 1,000 ML IV PRN (02:46)
[2021-08-30] MEDS ORDERED: Dextrose 50% Abboject 50 ML SYRINGE SLOW IVP PRN (02:46)
[2021-08-30] MEDS ORDERED: Acetaminophen 325 MG TAB ONE ×2 (03:50→10:23)
[2021-08-30] MEDS ORDERED: Cefepime 1 GM VIAL ONE (03:50)
[2021-08-30] MEDS: Cefepime 1 GM in Sodium Chloride 0.9% 100 ML IVPB SCH ×2 (03:56→16:11)
[2021-08-30] MEDS: Acetaminophen 325 MG TAB PO PRN ×2 (03:57→10:24)
[2021-08-30 05:55] LABS: #Lymphocytes 0.8 thou/uL (1.20-3.40); #Monocytes 0.8 thou/uL (0.11-0.59); #Neutrophils 9.6 thou/uL (1.40-6.50); %Basophils 0.3 % (0.0-1.0); %Eosinophils 0.4 % (0.0-10.0); %Monocytes 7.2 % (0.0-10.0); %Neutrophils 85.1 % (42.0-75.0); Hemoglobin 11.3 g/dL (14.0-18.0); Mean Corpuscular Hemoglobin 32.9 pg (27.0-31.0); Mean Corpuscular Volume 99.7 fL (78.0-98.0); Mean Platelet Volume 5.2 fL (7.4-10.4); Platelet Count 356 thou/uL (130-400); RBC Distribution Width 12.2 % (11.5-14.5); Red Blood Cell (RBC) Count 3.42 mill/uL (4.70-6.10); White Blood Cell (WBC) Count 11.3 thou/uL (4.8-10.8)
[2021-08-30 06:21] LABS: Anion Gap 11 mmol/L (10-20); BUN (Urea Nitrogen) 11 mg/dL (8.4-25.7); Calc. Creatinine Clearance 82 mL/min (70-130); Calcium 8.9 mg/dL (7.8-10.44); Carbon Dioxide 24 mmol/L (23-31); Chloride 104 mmol/L (98-107); Glucose 117 mg/dL (83-110); Potassium 4.1 mmol/L (3.5-5.1); Sodium 135 mmol/L (136-145)
[2021-08-30] MEDS ORDERED: HYDROcodone/Acetaminophen 7.5/325 mg Tablet ONE (08:40)
[2021-08-30] MEDS ORDERED: Enoxaparin Sodium 40 MG/0.4 ML SYRINGE ONE (09:19)
[2021-08-30] MEDS: Enoxaparin Sodium 40 MG/0.4 ML SYRINGE SC SCH (10:00)
[2021-08-30] MEDS ORDERED: VANCOMYCIN 2 GRAM/400 ML BAG 2 GM in Premix Bag 1 BAG IVPB SCH (11:00)
[2021-08-30] MEDS ORDERED: Iopamidol 370 76% 100 ML VIAL ONE (12:19)
[2021-08-30] MEDS ORDERED: FLU VACC QS2021-22(65YR UP)/PF 240 MCG/0.7 ML SYRINGE IM ONE (15:00)
[2021-08-30 17:16] LABS: Legionella Urinary Ag Negative (Negative); Strep pneumo Urine Ag NEGATIVE (NEGATIVE)
[2021-08-30] MEDS ORDERED: Piperacillin/Tazobactam 3.375 GM in Sodium Chloride 0.9% 100 ML IVPB SCH ×2 (19:30→20:00)
[2021-08-31] MEDS: Piperacillin/Tazobactam 3.375 GM in Sodium Chloride 0.9% 100 ML IVPB SCH ×3 (00:02→17:28)
[2021-08-31 04:48] LABS: #Eosinphils 0.1 thou/uL (0.0-0.7); #Lymphocytes 1.4 thou/uL (1.20-3.40); #Neutrophils 6.8 thou/uL (1.40-6.50); %Basophils 0.3 % (0.0-1.0); %Eosinophils 1.3 % (0.0-10.0); %Lymphocytes 15.3 % (21.0-51.0); %Monocytes 10.1 % (0.0-10.0); Hemoglobin 11.1 g/dL (14.0-18.0); Mean Corpuscular HGB CONC 33.2 g/dL (32.0-36.0); Mean Corpuscular Hemoglobin 32.6 pg (27.0-31.0); Mean Corpuscular Volume 98.5 fL (78.0-98.0); Mean Platelet Volume 5.6 fL (7.4-10.4); Platelet Count 328 thou/uL (130-400); RBC Distribution Width 12.2 % (11.5-14.5); White Blood Cell (WBC) Count 9.3 thou/uL (4.8-10.8)
[2021-08-31 05:09] LABS: Anion Gap 13 mmol/L (10-20); BUN (Urea Nitrogen) 11 mg/dL (8.4-25.7); Calc. Creatinine Clearance 0 mL/min (70-130); Calcium 8.6 mg/dL (7.8-10.44); Carbon Dioxide 24 mmol/L (23-31); Chloride 104 mmol/L (98-107); Glucose 104 mg/dL (83-110); Potassium 4.1 mmol/L (3.5-5.1); Sodium 137 mmol/L (136-145)
[2021-08-31] MEDS: Enoxaparin Sodium 40 MG/0.4 ML SYRINGE SC SCH (09:10)
[2021-08-31 14:39] VITALS: BMI 31.8
[2021-09-01] MEDS: Piperacillin/Tazobactam 3.375 GM in Sodium Chloride 0.9% 100 ML IVPB SCH ×3 (01:48→15:09)
[2021-09-01 04:38] LABS: Anion Gap 10 mmol/L (10-20); BUN (Urea Nitrogen) 16 mg/dL (8.4-25.7); Calc. Creatinine Clearance 75 mL/min (70-130); Calcium 8.6 mg/dL (7.8-10.44); Carbon Dioxide 27 mmol/L (23-31); Chloride 106 mmol/L (98-107); Glucose 126 mg/dL (83-110); Sodium 139 mmol/L (136-145)
[2021-09-01 04:43] LABS: #Eosinphils 0.4 thou/uL (0.0-0.7); #Lymphocytes 1.5 thou/uL (1.20-3.40); #Neutrophils 4.5 thou/uL (1.40-6.50); %Basophils 0.3 % (0.0-1.0); %Lymphocytes 20.5 % (21.0-51.0); %Monocytes 13.5 % (0.0-10.0); %Neutrophils 59.7 % (42.0-75.0); Hemoglobin 10.8 g/dL (14.0-18.0); Mean Corpuscular HGB CONC 33.9 g/dL (32.0-36.0); Mean Corpuscular Hemoglobin 33.8 pg (27.0-31.0); Mean Corpuscular Volume 99.5 fL (78.0-98.0); Mean Platelet Volume 5.7 fL (7.4-10.4); Platelet Count 319 thou/uL (130-400); White Blood Cell (WBC) Count 7.5 thou/uL (4.8-10.8)
[2021-09-01] MEDS ORDERED: RAMIPRIL 1.25 MG PO SCH (09:00)
[2021-09-01] MEDS ORDERED: ALTACE PO SCH (09:00)
[2021-09-01] MEDS: Enoxaparin Sodium 40 MG/0.4 ML SYRINGE SC SCH (09:11)
[2021-09-01] MEDS: Amlodipine 10 MG TAB PO SCH (09:11)
[2021-09-01] MEDS: glipiZIDE 5 MG TAB PO SCH (09:12)
[2021-09-01] MEDS ORDERED: GoLYTELY 4,000 ml Bottle PO SCH (15:00)
[2021-09-01] MEDS ORDERED: Pravastatin Sodium 20 MG TAB PO SCH (21:00)
[2021-09-01] MEDS: Simvastatin 10 MG TAB PO SCH (21:41)
[2021-09-02] MEDS: Piperacillin/Tazobactam 3.375 GM in Sodium Chloride 0.9% 100 ML IVPB SCH ×4 (01:20→23:12)
[2021-09-02] MEDS ORDERED: Mineral Oil ENEMA PR SCH (06:30)
[2021-09-02] MEDS: glipiZIDE 5 MG TAB PO SCH (08:10)
[2021-09-02] MEDS: Amlodipine 10 MG TAB PO SCH (08:10)
[2021-09-02] MEDS: Enoxaparin Sodium 40 MG/0.4 ML SYRINGE SC SCH (08:11)
[2021-09-02] MEDS ORDERED: PROPOFOL 200 MG/20 ML VIAL ONE (10:08)
[2021-09-02] MEDS: Simvastatin 10 MG TAB PO SCH (21:22)
[2021-09-03] MEDS: Enoxaparin Sodium 40 MG/0.4 ML SYRINGE SC SCH (08:12)
[2021-09-03] MEDS: Piperacillin/Tazobactam 3.375 GM in Sodium Chloride 0.9% 100 ML IVPB SCH ×2 (08:12→15:47)
[2021-09-03] MEDS: glipiZIDE 5 MG TAB PO SCH (08:12)
[2021-09-03] MEDS: Amlodipine 10 MG TAB PO SCH (08:12)
[2021-09-03] MEDS ORDERED: hydrALAZINE 20 MG/ML VIAL SLOW IVP PRN (17:05)
[2021-09-03] MEDS: Simvastatin 10 MG TAB PO SCH (21:23)
[2021-09-04] MEDS: Piperacillin/Tazobactam 3.375 GM in Sodium Chloride 0.9% 100 ML IVPB SCH ×4 (00:14→23:56)
[2021-09-04] MEDS: Amlodipine 10 MG TAB PO SCH (08:39)
[2021-09-04] MEDS: glipiZIDE 5 MG TAB PO SCH (08:39)
[2021-09-04] MEDS: Enoxaparin Sodium 40 MG/0.4 ML SYRINGE SC SCH (08:39)
[2021-09-04] MEDS: Simvastatin 10 MG TAB PO SCH (20:01)
[2021-09-05] MEDS: Piperacillin/Tazobactam 3.375 GM in Sodium Chloride 0.9% 100 ML IVPB SCH ×2 (08:18→15:47)
[2021-09-05] MEDS: Amlodipine 10 MG TAB PO SCH (08:19)
[2021-09-05] MEDS: Enoxaparin Sodium 40 MG/0.4 ML SYRINGE SC SCH (08:19)
[2021-09-05] MEDS: glipiZIDE 5 MG TAB PO SCH (08:19)
[2021-09-05 08:38] VITALS: TEMP 97.8
[2021-09-05 15:48] VITALS: BP 172/73
== END 2021-09-05 19:27 | disposition home or self-care (01) | DRG 376 ==
LOC: ERS 18:12 → ERHOLD 21:01 → 2NO 08-30 12:13 → OBSVTOIN 08-31 14:04 → T4-A 09-01 13:00
PROVIDERS: ADMIT Internal Medicine; ATTEND Hospitalist
PROC: 0DBN8ZX Excision of Sigmoid Colon, Via Natural or Artificial Opening Endoscopic, Diagnostic (ICD-10-PCS; principal; 2021-09-02)
DX: C18.7 Malignant neoplasm of sigmoid colon (principal); R50.9 Fever, unspecified; Z20.822 Contact with and (suspected) exposure to COVID-19; R53.1 Weakness; K52.9 Noninfective gastroenteritis and colitis, unspecified; F17.220 Nicotine dependence, chewing tobacco, uncomplicated; K64.8 Other hemorrhoids; I50.9 Heart failure, unspecified; I11.0 Hypertensive heart disease with heart failure; E78.5 Hyperlipidemia, unspecified; E11.9 Type 2 diabetes mellitus without complications; F03.90 Unspecified dementia, unspecified severity, without behavioral disturbance, psychotic disturbance, mood disturbance, and anxiety; Z80.9 Family history of malignant neoplasm, unspecified; Z88.5 Allergy status to narcotic agent; Z86.73 Personal history of transient ischemic attack (TIA), and cerebral infarction without residual deficits; Z79.84 Long term (current) use of oral hypoglycemic drugs; Z79.82 Long term (current) use of aspirin; Z79.899 Other long term (current) drug therapy
CPT/HCPCS: 0240U; 36415; 36416; 70450; 71045; 71260; 74177; 80048; 80053; 81003; 83605; 83880; 84484; 85025; 87040; 87086; 87449; 87899; 88305; 93005; 96365; 96367; 96372; 96375; 96376; G0378; J0692; J1650; J2543; J2704; J3370; J3490; Q9967